=== PATIENT | male | born 1960 ===

== ENCOUNTER 2020-11-12 10:15 | Inpatient (IN) | payer OTHER ==
[~2020-11-12] VITALS: Ht 177.8 cm; Wt 79.4 kg
[2020-11-12] MEDS ORDERED: HYDRALAZINE HCL10 MG PO (10:40)
[2020-11-12] MEDS ORDERED: COZAAR100 MG PO (10:40)
[2020-11-12] MEDS ORDERED: CARVEDILOL6.25 M1 PO (10:41)
[2020-11-12] MEDS ORDERED: ADULT LOW DOSE81 M1 PO (10:47)
[2020-11-12] MEDS ORDERED: NEURONTIN300 MG PO (13:04)
[2020-11-16] MEDS ORDERED: METOLAZONE5 MG (10:15)
[2020-11-16] MEDS ORDERED: OMEGA-3 ACID ETH1 GM (15:42)
[2020-11-19] MEDS ORDERED: PRILOSEC OTC20 MG PO (11:37)
[2020-11-19] MEDS ORDERED: PERCOCET 5-3251 EACH PO (11:37)
== END 2020-11-19 12:35 | disposition home or self-care (01) | DRG 333 ==
LOC: SURG 11-16 07:44 → O/R 11-16 07:44 → SURH 11-16 10:15 → SURG 11-16 17:39 → O/R 11-17 15:52 → SURG 11-17 15:57 → O/R 11-17 16:38 → SURG 11-17 16:42
PROVIDERS: ADMIT Surgery; ATTEND Surgery
PROC: 07BB4ZX Excision of Mesenteric Lymphatic, Percutaneous Endoscopic Approach, Diagnostic (ICD-10-PCS; 2020-11-16)
PROC: 0DTP4ZZ Resection of Rectum, Percutaneous Endoscopic Approach (ICD-10-PCS; principal; 2020-11-16 17:00)
DX: C18.7 Malignant neoplasm of sigmoid colon (principal); C78.7 Secondary malignant neoplasm of liver and intrahepatic bile duct; R59.0 Localized enlarged lymph nodes; K59.09 Other constipation; I10 Essential (primary) hypertension